=== PATIENT | female | born 1975 | race Caucasian/White ===

== ENCOUNTER → 2023-12-18 12:45 | Outpatient (REF) | payer OTHER, SELFPAY | LOC: MRI 3T 12:45 | PROVIDERS: ATTENDING PHYSICIAN Student in an Organized Health Care Education/Training Program | DX: M54.50 Low back pain, unspecified (principal) | CPT/HCPCS: 72148 ==

== ENCOUNTER → 2023-12-19 08:09 | Outpatient (REF) | payer OTHER, SELFPAY | LOC: WDC 08:09 | PROVIDERS: ATTENDING PHYSICIAN Nurse Practitioner Family | DX: N64.4 Mastodynia (principal) | CPT/HCPCS: 76642; 77062; 77066 ==

== ENCOUNTER 2024-06-20 19:03 | Emergency (ER) | payer OTHER, SELFPAY ==
[2024-06-20 19:14] VITALS: BP 121/72
[2024-06-20] MEDS: KEFLEX 500 MG PO (21:06)
[2024-06-20 21:26] VITALS: BP 119/71
--- NOTE | 2024-06-20 23:12 | ED.SKININJ ---
HPI-Injury
General
Chief Complaint: Skin Problem
Source: patient
Exam Limitations: none
Time Seen by Provider: 06/20/24 20:46
Nursing documentation reviewed up to this point in time: agreed with
History of Present Illness-Injury
Is this injury a work related problem?: No
Is pt an associate of [facility]?: No
Initial Injury comments:
Patient reports feeling a bite to her right calf on Tuesday. Since then she notes redness at site. Very itchy. No swelling, no discharge. Brought self to eD for eval. No fever/chills.
Past History
Past History
ED Past Medical History: Other (Seasonal allergies)
ED Past Surgical History:
Patient has exhibited threatening behavior?: No
PSI?: No
Social History
Tobacco: Non-smoker
Alcohol: Occasional
Personal:
Living: with family
Employment: Employed (self)
Family History
Family History: Other (Gallbladder disease in mom and grandmom); Negative CAD
Skin Exam
Bite
Right Calf:
Type: insect/spider
Surrounding area around bite has: pruritic and other (mild erythema at site)
Phy Exam
General Physical Exam
General Presentation: well appearing and no apparent distress
General age: appears stated age
General Skin: warm and dry
General Habitus: normal
Musculoskeletal Exam
Musculoskeletal Exam: full ROM and neuro vasc intact
Skin Exam
Skin Exam: normal color, warm/dry and other (mild erythema to right lower calf. Pruritic. No swelling no discharge no pain.)
Psychiatric Exam
Psychiatric Exam: normal mood/affect
Course
Orders/Labs/Results
Orders:
Orders
06/20/24 20:59
Prednisone [Deltasone] 40 mg PO NOW STA
06/20/24 21:00
Cephalexin Monohydrate [Keflex] 500 mg PO NOW STA
Vital Signs
Initial and Last Documented VS:
Initial Vital Signs
Temp Pulse Resp BP Pulse Ox
98 F 84 16 121/72 98
06/20/24 19:14 06/20/24 19:14 06/20/24 19:14 06/20/24 19:14 06/20/24 19:14
Last Documented Vital Signs
Temp Pulse Resp BP Pulse Ox
98 F 81 16 119/71 99
06/20/24 19:14 06/20/24 21:26 06/20/24 19:14 06/20/24 21:26 06/20/24 21:26
*Critical Care Note
Total Time (30-74mins, 75-104mins- exclusive of procedures): Not Applicable
Update Note
Update Note:
Suspected insect bite to right lower calf. Area of mild erythema noted, consistent with inflammatory response to insect venom. No swelling, no pain No evidence of abscess formation. RLE neurovasculary intact. Recommend prednisone taper and
topical anti-itch medications such as benadryl cream. WIll order course of keflex on the off chance that this is infectious. Instructed on s/s to return to eD and she is agreeable to plan
ED Attending Note
-
Portions of this chart may have been created with voice recognition software.� Occasional wrong word or��sound alike� substitutions may have occurred due to the inherent limitations of voice recognition software.
Discharge Plan
Departure
Patient Disposition: Home (Routine Discharge)
Date of Disposition: 06/20/24
Time of Disposition: 21:00
Patient with high blood pressure during this ER visit?: No
Condition: Good
Covid-19: Not Applicable
Discharge Problem:
Insect bite
Instructions: Insect Bites and Stings ED
Prescriptions:
New
cephalexin 500 mg capsule
500 mg PO BID 7 Days Qty: 14 0RF
prednisone 10 mg Tablet
See Rx Instructions .ROUTE .COMPLEX Qty: 30 0RF
Rx Instructions:
Take By Mouth:
40 mg daily x3 days, 30 mg daily x3 days,
20 mg daily x3 days, 10 mg daily x3 days.
No Action
multivitamin [Ach-Hkqevl-Kinns] 1 EACH tablet
1 ea PO DAILY
ibuprofen 600 MG tablet
600 mg PO Q6HPRN PRN (Reason: pain)
oxycodone 5 MG tablet
5 mg PO Q6H PRN (Reason: pain) Qty: 10 0RF
Patient Comments:
for post op only
acetaminophen-codeine 1 TABLET tablet
1 tab PO Q6HPRN PRN (Reason: pain) Qty: 6 0RF
cetirizine [Zyrtec] 10 MG tablet
1 tab PO DAILY
bupropion HCl 150 MG tablet extended release 24 hr
150 mg PO DAILY
Referrals:
Gabe Crooks MD [Family Provider] - Follow up in 2-3 days
Interventions
Interventions:
*Risk Screen - Suicide Last Done: 06/20/24 19:14
*General Assessment Last Done: 06/20/24 20:30
*Neglect/Abuse Screening Last Done: 06/20/24 20:30
*Nursing Disposition Last Done: 06/20/24 21:26
ED-Skin Assessment Last Done: 06/20/24 20:30
Discharge Date and Time
Discharge Date/Time: 06/20/24 21:27
Print Language: UGANDAN
== END 2024-06-20 21:27 | disposition home or self-care (01) ==
LOC: EMR 19:03
PROVIDERS: EMERGENCY PHYSICIAN Student in an Organized Health Care Education/Training Program; FAMILY PHYSICIAN Family Medicine
DX: S80.861A Insect bite (nonvenomous), right lower leg, initial encounter (principal); W57.XXXA Bitten or stung by nonvenomous insect and other nonvenomous arthropods, initial encounter
CPT/HCPCS: 99282

== ENCOUNTER → 2024-07-03 12:59 | Outpatient (REF) | payer OTHER, SELFPAY | LOC: HWEVLT 12:59 | PROVIDERS: ATTENDING PHYSICIAN Radiology Diagnostic Radiology | DX: I83.892 Varicose veins of left lower extremity with other complications (principal) | CPT/HCPCS: 93971 ==

== ENCOUNTER → 2024-12-07 20:05 | Outpatient (REF) | payer OTHER, SELFPAY | LOC: MRI 3T 20:05 | PROVIDERS: ATTENDING PHYSICIAN Specialist; FAMILY PHYSICIAN Physician Assistant Medical | DX: T85.41XA Breakdown (mechanical) of breast prosthesis and implant, initial encounter (principal); T85.43XA Leakage of breast prosthesis and implant, initial encounter | CPT/HCPCS: 77049; A9585 ==